=== PATIENT | female | born 1990 | race Caucasian/White ===

== ENCOUNTER 2017-01-07 08:11 | Day surgery (SDC) | payer BC, OTHER ==
[2017-01-06 13:18] LABS: HEMATOCRIT 40.1 % (36.0-48.0); HEMOGLOBIN 13.3 g/dL (12.0-16.0)
[2017-01-06 13:23] LABS: INTERNATIONAL NORMAL RATI 1.1 UNITS (-); PROTIME (NOT ORD) 13.8 SEC (12.0-14.5)
--- NOTE | ~2017-01-07 | OP ---
Record Of Operation [facility] [address] [place]. [address] NAME: WALT MARIANO : 89 STATUS : [facility] PAT#: [id number] AGE: 26 ADM/REG DATE : 01/07/17 MR#: [id number] REPORT SERV DATE: 01/07/17 DICTATED BY: CARLOS MOY DATE: 01/07/17 REPORT STATUS : Draft TRANSCRIBED BY: MODL DATE: 01/07/17 DATE OF PROCEDURE: 01/07/2017 SERVICE: Otolaryngology. SURGEON: Carlos Moy M.D. PREOPERATIVE DIAGNOSIS: Recurrent tonsillitis. POSTOPERATIVE DIAGNOSIS: Recurrent tonsillitis. PROCEDURE PERFORMED: Tonsillectomy. INDICATIONS FOR PROCEDURE: The patient is a 26-year-old female with multiple episodes of recurrent tonsillitis over the past several years. She presents for surgical management. SPECIMENS: Tonsils. ANESTHESIA: General endotracheal. BLOOD LOSS: Minimal. RETAINED ITEMS: None. COMPLICATIONS: None. OPERATIVE FINDINGS: 1. 3+ symmetric tonsils. 2. Nonobstructive adenoids. FLUIDS: Crystalloid. DESCRIPTION OF PROCEDURE: The patient was identified in the preoperative holding, where informed consent was ensured. She was brought to the operating room, placed on operative room table in supine position. General endotracheal anesthesia was induced without difficulty. A time-out was performed to correctly identify the patient and discuss operative plan. The head of bed was turned to 90 degrees to facilitate access to the head and neck. The patient was then prepped and draped in the standard fashion for this procedure. A Blas-Macho mouth gag was inserted in the oral cavity and suspended from towels placed the patient's chest. A catheter was used to retract the soft palate. First, the right tonsil was grasped with a curved Allis. This was freed from the tonsillar fossa. Careful hemostasis was ensured with the suction Bovie cautery. A similar procedure was performed on the contralateral side. The tonsil was freed from the tonsillar fossa with Bovie cautery. Suction Bovie cautery was used to establish hemostasis. The patient was let down from Record Of Operation [facility] [address] [place]. [address] NAME: WALT MARIANO : 89 STATUS : [facility]#: [id number] AGE: 26 ADM/REG DATE : 01/07/17 MR#: [id number] REPORT SERV DATE: 01/07/17 DICTATED BY: CARLOS MOY DATE: 01/07/17 REPORT STATUS : Draft TRANSCRIBED BY: DANITA DATE: 01/07/17 suspension and observed for several minutes. There were no additional bleeders identified when she was re-suspended. An orogastric tube was placed to remove gastric contents. All equipment was withdrawn from the oral cavity. The patient was turned over to Anesthesia for awakening and extubation, and transported to the PACU in stable condition. DISPOSITION: The patient will follow up in approximately one month for postoperative evaluation. /DANITA Carlos Moy MD / [id number] CC: MD Leona Sinha
[~2017-01-07 08:11] MED LIST: LEVSINTAB PO; [UNRECOGNIZED DRUG - REMARK]
== END 2017-01-07 14:03 | disposition home or self-care (01) ==
LOC: SDC 08:11
PROVIDERS: Otolaryngology
PROC: 0CTPXZZ Resection of Tonsils, External Approach (ICD-10-PCS; principal; 2017-01-07 09:45)
DX: J03.90 Acute tonsillitis, unspecified (principal); K58.9 Irritable bowel syndrome, unspecified; E66.9 Obesity, unspecified; J38.3 Other diseases of vocal cords; Z68.31 Body mass index [BMI] 31.0-31.9, adult; Z91.040 Latex allergy status; Z88.5 Allergy status to narcotic agent; Z79.3 Long term (current) use of hormonal contraceptives; Z79.899 Other long term (current) drug therapy; Z98.890 Other specified postprocedural states
CPT/HCPCS: 36415; 84703; 85014; 85018; 85610; 85730; 88304; A9270-GY; J2250; J2270; J2405; J3010